=== PATIENT | male | born 1990 | race Caucasian/White ===

== ENCOUNTER 2018-04-28 23:25 | Emergency (ER) | payer MEDICAID, OTHER ==
[~2018-04-28] VITALS: Ht 180.3 cm; Wt 78.0 kg
[2018-04-28 23:32] VITALS: BP 144/84
[2018-04-28] MEDS ORDERED: MAALOX/HYOSCYAMINE/LIDOCAINE 45 ML BTL ONE (23:51)
[2018-04-28] MEDS ORDERED: FAMOTIDINE 20 MG TABLET ONE (23:51)
[2018-04-29] MEDS ORDERED: MAALOX/HYOSCYAMINE/LIDOCAINE 45 ML BTL PO ONE
[2018-04-29] MEDS ORDERED: FAMOTIDINE 20 MG TABLET PO ONE
== END 2018-04-29 00:15 | disposition home or self-care (01) ==
LOC: ED 23:59
DX: K21.0 Gastro-esophageal reflux disease with esophagitis (principal); F10.20 Alcohol dependence, uncomplicated; Z72.89 Other problems related to lifestyle; F17.200 Nicotine dependence, unspecified, uncomplicated
CPT/HCPCS: 93005; 99283; 99406

== ENCOUNTER 2018-08-04 17:18 | Emergency (ER) | payer MEDICAID ==
[~2018-08-04] VITALS: Ht 180.3 cm; Wt 66.3 kg
[2018-08-04 17:41] VITALS: BP 136/91
[2018-08-04] MEDS ORDERED: FLUORESCEIN OPHTHALMIC 1 MG STRIP EACHEYE ONE (18:00)
[2018-08-04] MEDS ORDERED: FLUORESCEIN/BENOXINATE 5 ML DROPS EACHEYE ONE (18:00)
[2018-08-04] MEDS ORDERED: PROPARACAINE OPHTH 0.5%, 15ML EACHEYE ONE (18:00)
[2018-08-04] MEDS ORDERED: PROPARACAINE OPHTH 0.5%, 15ML ONE (18:03)
== END 2018-08-04 19:51 | disposition other institution (70) ==
LOC: ED 18:20
DX: H10.33 Unspecified acute conjunctivitis, bilateral (principal); Z72.9 Problem related to lifestyle, unspecified
CPT/HCPCS: 99283

== ENCOUNTER 2018-08-09 15:11 | Emergency (ER) | payer MEDICAID ==
[~2018-08-09] VITALS: Ht 180.3 cm; Wt 65.0 kg
[2018-08-09 15:22] VITALS: BP 123/78
[2018-08-09] MEDS ORDERED: PROPARACAINE OPHTH 0.5%, 15ML EACHEYE ONE (15:30)
[2018-08-09] MEDS ORDERED: FLUORESCEIN OPHTHALMIC 1 MG STRIP EACHEYE ONE (15:30)
== END 2018-08-09 17:06 | disposition home or self-care (01) ==
LOC: ED 15:55
DX: H10.213 Acute toxic conjunctivitis, bilateral (principal)
CPT/HCPCS: 99283

== ENCOUNTER 2021-05-06 11:08 | Emergency (ER) | payer MEDICAID, OTHER ==
[~2021-05-06] VITALS: Ht 177.8 cm; Wt 86.5 kg
[2021-05-06 11:13] VITALS: BP 140/79
[2021-05-06] MEDS ORDERED: MIRT-38 PO (11:27)
== END 2021-05-06 12:19 | disposition home or self-care (01) ==
LOC: ED 11:43
DX: J02.8 Acute pharyngitis due to other specified organisms (principal); Z20.822 Contact with and (suspected) exposure to COVID-19; B97.89 Other viral agents as the cause of diseases classified elsewhere
CPT/HCPCS: 87081; 87880; 99283; U0003; U0005